=== PATIENT | male | born 1980 | race Caucasian/White ===

== ENCOUNTER 2016-08-26 11:01 | Day surgery (SDC) | payer BC, OTHER ==
[~2016-08-26 11:01] MED LIST: ACETAMINOPHEN WITH CODEINE 1 EACH TABLET PO PRN; MORPHINE SULFATE 2 MG/ML DISP.SYRIN IV PRN; ONDANSETRON HCL/PF 2 MG/ML VIAL IV PRN; RINGERS SOLUTION,LACTATED 1,000 ML IV PRN; ceFAZolin SODIUM 1 GM in DEXTROSE 5 % IN WATER 100 ML IV PRN; oxyCODONE HCL/ACETAMINOPHEN 1 TAB TABLET PO PRN
[2016-08-26] MEDS ORDERED: RINGERS SOLUTION,LACTATED 1,000 ML IV ONE (11:30)
[2016-08-26] MEDS ORDERED: BACITRACIN ZINC 30 APPL TUBE TP ONE (12:53)
--- NOTE | 2016-08-26 13:29 | OR ---
Operative Report - Dictated Report Narrative: Surgery: R hydrocelectomy Preop: R hydrocele Postop: same Anesthesia: Gen Blood loss: 5 mL Specimen: none Drains: none Description of the Procedure: Patient was properly identified and consented. Brought to the OR and Gen Anesthesia induced. Prepped and draped in supine position. Timeout performed. Vertical incision made on the R hemiscrotum. Dissected down through dartos and hydrocele delivered via the incision. About the size of a small apple. Cleaned off the hydrocele to mobilize. I then opened the hydrocele and drained out clear fluid. Testicle was normal. The edges of the tunica were inverted behind the testicle and tied off with 3-0 Vicryl. The wound was irrigated. Minor bleeding controlled. Testicle returned to scrotum without difficulty or sign of complication. Dartos closed with running Vicryl. Skin closed with 3-0 Chromic interrupted. Dressing of Bacitracin, gauze and jock strap applied. Patient awoken from anesthesia and returned to recovery in good condition.
[2016-08-26 14:54] VITALS: BP 128/83
== END 2016-08-26 11:02 | disposition home or self-care (01) ==
LOC: AMB 11:01
PROVIDERS: ATTEND Urology
PROC: 0VB60ZZ Excision of Right Tunica Vaginalis, Open Approach (ICD-10-PCS; principal; 2016-08-26 12:40)
DX: N43.3 Hydrocele, unspecified (principal); I10 Essential (primary) hypertension; K21.9 Gastro-esophageal reflux disease without esophagitis; E78.5 Hyperlipidemia, unspecified; G47.33 Obstructive sleep apnea (adult) (pediatric); Z87.891 Personal history of nicotine dependence; Z68.29 Body mass index [BMI] 29.0-29.9, adult